=== PATIENT | male | born 1995 | race African-American/Black ===

== ENCOUNTER 2018-08-22 21:15 | Emergency (ER) | payer SELFPAY, MEDICAID ==
[~2018-08-22] VITALS: Ht 170.2 cm; Wt 72.6 kg
[2018-08-22 21:20] VITALS: BP 128/78
[2018-08-22] MEDS ORDERED: AUGMENTIN 875-1 EAC1 ORAL (21:28)
[2018-08-22] MEDS ORDERED: Augmentin 875mg Tab ORAL ONE (21:30)
--- NOTE | 2018-08-22 21:34 | Emergency Room Report ---
History of Present Illness General Chief Complaint: Medical Clearance Source: Patient Present Illness HPI Patient was brought in by [facility] department for 'okay to book' After being picked up the patient had complained of discomfort to his left hand On further questioning patient had a injury and a scrape that occurred proximally 7 days ago Denies any fevers Denies any forearm pain Denies any elbow pain Patient has some discomfort in the hand itself Allergies: Coded Allergies: No Known Allergies (Unverified , 08/22/18) Patient History Past Medical History: see triage record Pertinent Family History: none Reviewed Nursing Documentation: PMH: Agreed; PSxH: Agreed Nursing Documentation-PMH Past Medical History: No Stated History Review of Systems All Other Systems: negative except mentioned in HPI Physical Exam Vital Signs Date Time Temp Pulse Resp B/P (MAP) Pulse Ox O2 Delivery O2 Flow Rate FiO2 08/22/18 21:16 98.6 93 15 98 Room Air Sp02 EP Interpretation: reviewed, normal General Appearance: well appearing, no apparent distress Head: normocephalic, atraumatic Eyes: bilateral eye PERRL, bilateral eye EOMI ENT: hearing grossly normal, normal pharynx Neck: full range of motion Respiratory: lungs clear Cardiovascular #1: regular rate, rhythm Gastrointestinal: non tender, soft Genitourinary: no CVA tenderness Musculoskeletal: swelling - Left hand including small, ring finger and middle Neurologic: alert, oriented x3, responsive Skin: other - Areas of abrasion involving the small, ring and middle finger also, proximal hand, associated with erythema and mild swelling patient is able to flex the fingers, able to flex at the wrist Lymphatic: no adenopathy Medical Decision Making Diagnostic Impression: Primary Impression: hand cellulitis Additional Impression: ok to book ER Course After being picked up by [facility] department patient had complained of his left hand swelling On further evaluation the injury has occurred about 7 days ago patient did not see gout any medical care and was brought in by [facility] for evaluation Patient does have a concerning cellulitis that has developed At this time will have initial attempt of oral antibiotics And requires close [facility] M.D. follow-up in the morning Last Vital Signs Date Time Temp Pulse Resp B/P (MAP) Pulse Ox O2 Delivery O2 Flow Rate FiO2 08/22/18 21:16 98.6 93 15 98 Room Air Status: improved Disposition: D/C TO LAW ENFORCEMENT IN [facility] Condition: Stable Scripts Amoxicillin/Potassium Clav 875-125* (AUGMENTIN 875-125 TABLET*) 1 Each Tablet 1 TAB ORAL TWICE A DAY, #14 TAB Prov: Lucrecia Espino DO 08/22/18 Departure Forms: Intermediate Clearance Patient Instructions: Cellulitis, [id number] Additional Instructions: Follow-up sylvain Bernard in the morning.Your hand appears infected, this is concerning and will require close follow-up Lucrecia Espino DO Aug 22, 2018 21:34
[2018-08-22 21:45] VITALS: BP 128/78
== END 2018-08-22 21:45 ==
LOC: EMR 21:24
DX: L03.114 Cellulitis of left upper limb (principal)
CPT/HCPCS: 99283